=== PATIENT | male | born 1940 | race Caucasian/White ===

== ENCOUNTER 2018-01-12 20:30 | Inpatient (IN) | payer MEDICARE, BC ==
[~2018-01-12] VITALS: Ht 175.3 cm; Wt 75.7 kg
[2018-01-12 20:30] VITALS: BP 174/142
--- NOTE | 2018-01-12 20:40 | NUR ---
PT [facility]IBA#39 [facility], PT WAS SENT HERE FOR LOW O2 SATS, PT RECEIVED 5MG ALBUTEROL DIRECTOR CHEMISTRY BY EMS. PT SATING 90% RA. PT IS AAOX1. RESP EVEN AND LABORED. S/S OF ACUTE DISTRESS NOTED. SKIN HOT TO TOUCH AND MILDLY DIAPHORETIC. RT BEDSIDE TO PLACE PT ON BIPAP PER MD. MD BEDSIDE EVALUATING PT. PT PLACED IN GOWN AND MONITOR AND POX. PT SAFETY AND COMFORT MEASURES IN PLACE.
--- NOTE | 2018-01-12 20:42 | NUR ---
BIPAP SETTING 15/ RR 18 50%
[2018-01-12] MEDS ORDERED: ALBUTEROL FS 2.5 MG/0.5 ML VIAL.NEB ONE (20:49)
[2018-01-12] MEDS ORDERED: IPRATROPIUM NEB FS 0.5 MG/2.5 ML AMPUL.NEB ONE (20:49)
[2018-01-12] MEDS ORDERED: PIPERACILLIN /TAZOBACTAM 3.375 G in IV D5W 50 ML IV ONE (21:00)
[2018-01-12] MEDS ORDERED: IPRATROPIUM NEB FS 0.5 MG/2.5 ML AMPUL.NEB NEB ONE (21:00)
[2018-01-12] MEDS ORDERED: IV NS 0.9% 1,000 ML BAG IV ONE (21:00)
[2018-01-12] MEDS ORDERED: ALBUTEROL FS 2.5 MG/0.5 ML VIAL.NEB NEB ONE (21:00)
[2018-01-12] MEDS ORDERED: Magnesium 1GM/D5W 100ML PREMIX 100 ML IV SCH (21:00)
[2018-01-12] MEDS ORDERED: DEXAMETHASONE SOD PHOSPHATE 10 MG/ML VIAL IV ONE (21:00)
[2018-01-12] MEDS ORDERED: Magnesium 1GM/D5W 100ML PREMIX 100 ML IV ONE (21:11)
[2018-01-12] MEDS ORDERED: DEXAMETHASONE SOD PHOSPHATE 10 MG/ML VIAL ONE (21:11)
[2018-01-12] MEDS ORDERED: PIPERACILLIN /TAZOBACTAM 3.375 G VIAL IV ONE (21:11)
--- NOTE | 2018-01-12 21:11 | NUR ---
PT REC'D ON 8L BREATHING TX MASK. RESP DISTRESS NOTED. EXPIRATORY WHEEZES AND RHONCHI HEARD ON AUSCULTATION. PT PLACED ON BIPAP PER DR NELSY ERWIN. BIPAP PLUGGED INTO RED OUTLET. AMBU BAG BEDSIDE. ALARMS ARE SET AND AUDIBLE WILL CONTINUE TO MONITOR Addendum: 01/12/18 at 2113 by SEMAJ ORDOÑEZ RT Amended: Links added.
--- NOTE | 2018-01-12 21:13 | NUR ---
LAB BEDSIDE FOR BLOOD DRAW
[2018-01-12 21:24] LABS: BASOPHILS % (AUTO) 0.3 % (0.0-2.0); EOSINOPHILS # (AUTO) 0.1 /CMM (0.0-0.7); EOSINOPHILS % (AUTO) 0.9 % (0.0-6.0); HEMATOCRIT 36 % (39-51); HEMOGLOBIN 12.2 g/dL (13.5-17.5); LYMPHOCYTES # (AUTO) 0.9 /CMM (0.8-4.8); MEAN CORPUSCULAR HEMOGLOBIN 29 PG (26.0-33.0); MEAN CORPUSCULAR HGB CONC 34 g/dl (31.0-36.0); MEAN CORPUSCULAR VOLUME 85 fL (80-96); MONOCYTES # (AUTO) 0.5 /CMM (0.1-1.30); MONOCYTES % (AUTO) 9.3 % (2.0-12.0); NEUTROPHILS # (AUTO) 4.3 /CMM (1.8-8.9); NEUTROPHILS % (AUTO) 73.5 % (43.0-81.0); PLATELET COUNT (AUTO) 188 /CMM (150-450); RDW COEFFICIENT OF VARIATION 12.9 (11.5-15.0); RED BLOOD CELL COUNT(AUTO) 4.19 MIL/uL (4.5-6.0); WHITE BLOOD COUNT (AUTO) 5.8 K/uL (4.3-11.0)
[2018-01-12 21:31] LABS: CARBON DIOXIDE 34 mmol/L (21-32); CHLORIDE 98 mmol/L (98-107); GLUCOSE 153 mg/dL (74-106); POTASSIUM 3.9 mmol/L (3.5-5.1); SODIUM SERUM 136 mmol/L (136-145); UREA NITROGEN, BLOOD 33 mg/dL (7-18)
[2018-01-12 21:36] LABS: INR 0.99 (0.85-1.15)
[2018-01-12 21:39] LABS: TROPONIN I < 0.017 ng/mL (0.00-0.056)
[2018-01-12 21:43] LABS: ALANINE AMINOTRANSFERASE 31 U/L (12-78); ALBUMIN 2.4 g/dL (3.4-5.0); ALKALINE PHOSPHATASE 81 U/L (46-116); ASPARTATE AMINOTRANSFERASE 35 U/L (15-37); B-TYPE NATRIURETIC PEPTIDE 1481 PG/ML (0-125); BILIRUBIN,DIRECT 0.1 mg/dL (0.0-0.2); BILIRUBIN,TOTAL 0.2 mg/dL (0.2-1.0)
[2018-01-12] MEDS ORDERED: clonazePAM 1 MG TABLET GT PRN (22:30)
[2018-01-12] MEDS ORDERED: ALBUTEROL FS 2.5 MG/3 ML VIAL.NEB NEB PRN ×2 (22:30→22:38)
[2018-01-12] MEDS ORDERED: ACETAMINOPHEN 650 MG/SUPP.RECT RC PRN (22:30)
[2018-01-12] MEDS ORDERED: IPRATROPIUM NEB FS 0.5 MG/2.5 ML AMPUL.NEB NEB PRN (22:30)
[2018-01-12] MEDS ORDERED: IV NS 0.9% 1,000 ML BAG IV PRN (23:00)
--- NOTE | 2018-01-12 23:00 | NUR ---
REPORT GIVEN TO TELEPHONE OPERATOR RECEPTIONISTJOSLYN PRYOR FOR JEREMIAS
[2018-01-12 23:05] LABS: APPEARANCE,URINE SL CLOUDY (CLEAR); BILIRUBIN,URINE NEGATIVE (NEGATIVE); BLOOD, URINE TRACE-INTA Ery/uL (NEGATIVE); COLOR,URINE YELLOW (YELLOW); KETONES,URINE NEGATIVE (NEGATIVE); LEUKOCYTE ESTERASE ,URINE NEGATIVE (NEGATIVE); NITRITE, URINE NEGATIVE (NEGATIVE); PROTEIN,URINE 1+ mg/dl (NEGATIVE); UGLUCOSE NEGATIVE (NEGATIVE); UROBILINOGEN,URINE 0.2 EU/dL (0.2)
[2018-01-12 23:11] LABS: BACTERIA,URINE None seen /HPF (None Seen); SQUAMOUS EPITHELIAL CELL,UR Rare /HPF (None Seen); WBC,URINE 0-2 /HPF (0-3)
[2018-01-12 23:27] VITALS: BP 130/109
[2018-01-12] MEDS ORDERED: DILTIAZEM HCL IV 125 MG in IV D5W 100 ML IV PRN (23:30)
[2018-01-12] MEDS ORDERED: DILTIAZEM HCL 50 MG IV IV ONE (23:30)
--- NOTE | 2018-01-12 23:30 | NUR ---
LOCK AND DAM OPERATOR RCD PT W/DX ACUTE HYPOXIC RESP FAILURE; PT IS AWAKE NON VERBAL AT THIS TIME; DOES NOT FOLLOW COMMANDS. ST 160s ON MONITOR. GTUBE CLAMPED. ABD BINDER IN PLACE. LUEVANO CATH IN PLACE WITH ADEQUATE AMOUNT OF DARK YELLOW URINE. PT WITH GENERALIZED RASH ALL THROUGHOUT BODY. REDNESS ON BUTTOCKS. MEPILEX PLACED.
[2018-01-12 23:33] VITALS: BP 138/97
[2018-01-12] MEDS: IV NS 0.9% 1,000 ML IV PRN (23:55)
[2018-01-13] VITALS (53 sets, daily range): BP systolic 105–168; BP diastolic 51–86
[2018-01-13] MEDS ORDERED: LORAZEPAM INJ 2 MG/ML VIAL IV ONE
--- NOTE | 2018-01-13 | NUR ---
WALLPAPER INSPECTORCHILD CAREGIVER PRIVATE HOME AT BEDSIDE; UPDATED ON PT CONDITION; PER FAMILY THE RASH IS DERMATITIS WAS TOLD TO THEM BY THE FORM STRIPPER. FAMILY REQUESTS MITTEN BE PLACED TO RIGHT HAND; PER FAMILY PT IS VERY STRONG WITH THAT HAND AND REMOVES TUBES WITH THAT. RCD ORDER TO PLACE PTS MITTEN. FAMILY EDUCATED ON RESTRAINT USAGE. PER FAMILY PLACE SHEET IN BETWEEN PTS AND BINDER AND STOMACH.
[2018-01-13] MEDS ORDERED: DILTIAZEM HCL 25 MG IV ONE ×2 (00:34)
[2018-01-13] MEDS: FIBERSOURCE HN 1,000 ML BOTTLE GT PRN (04:32)
[2018-01-13] MEDS ORDERED: PIPERACILLIN /TAZOBACTAM 3.375 G VIAL IV ONE (04:33)
[2018-01-13 04:43] LABS: EOSINOPHILS % (AUTO) 0.1 % (0.0-6.0); HEMATOCRIT 35 % (39-51); HEMOGLOBIN 11.7 g/dL (13.5-17.5); LYMPHOCYTES # (AUTO) 0.3 /CMM (0.8-4.8); LYMPHOCYTES % (AUTO) 6.1 % (20.0-44.0); MEAN CORPUSCULAR HEMOGLOBIN 29 PG (26.0-33.0); MEAN CORPUSCULAR HGB CONC 33 g/dl (31.0-36.0); MEAN CORPUSCULAR VOLUME 88 fL (80-96); MONOCYTES # (AUTO) 0.1 /CMM (0.1-1.30); NEUTROPHILS # (AUTO) 3.9 /CMM (1.8-8.9); NEUTROPHILS % (AUTO) 91.8 % (43.0-81.0); PLATELET COUNT (AUTO) 165 /CMM (150-450); RDW COEFFICIENT OF VARIATION 14.2 (11.5-15.0); RED BLOOD CELL COUNT(AUTO) 4.01 MIL/uL (4.5-6.0); WHITE BLOOD COUNT (AUTO) 4.3 K/uL (4.3-11.0)
[2018-01-13] MEDS: PIPERACILLIN /TAZOBACTAM 3.375 G in IV D5W 50 ML IV SCH ×3 (05:00→21:02)
[2018-01-13] MEDS ORDERED: methylPREDNISolone SOD SUCC 40 MG/ML VIAL IV SCH (05:00)
[2018-01-13] MEDS: NORMAL SALINE FLUSH 10 ML SYR IV SCH ×3 (05:00→21:02)
[2018-01-13 05:06] LABS: CALCIUM, SERUM 8.5 mg/dL (8.5-10.1); CARBON DIOXIDE 25 mmol/L (21-32); CHLORIDE 102 mmol/L (98-107); CREATININE 1.2 mg/dL (0.6-1.3); GLUCOSE 221 mg/dL (74-106); MAGNESIUM 2.2 mg/dL (1.8-2.4); PHOSPHORUS 3.6 mg/dL (2.5-4.9); POTASSIUM 4.8 mmol/L (3.5-5.1); SODIUM SERUM 138 mmol/L (136-145); UREA NITROGEN, BLOOD 31 mg/dL (7-18)
[2018-01-13 05:10] LABS: CHOLESTEROL 95 mg/dL (<200); HDL CHOLESTEROL 42 mg/dL (40-60); LDL 44 mg/dL (0-99); TRIGLYCERIDES 39 mg/dL (30-150)
[2018-01-13] MEDS ORDERED: LACT-96 GT (07:43)
[2018-01-13] MEDS ORDERED: NAFT40GE TP (07:43)
[2018-01-13] MEDS ORDERED: VALP250S4 GT (07:43)
[2018-01-13] MEDS ORDERED: METO25TA20 GT (07:43)
[2018-01-13] MEDS ORDERED: ALPR0.5T GT (07:43)
[2018-01-13] MEDS ORDERED: OMEP20CA10 GT (07:43)
[2018-01-13] MEDS ORDERED: ASPI-1169 GT (07:43)
[2018-01-13] MEDS ORDERED: DOCU50LI GT (07:43)
[2018-01-13] MEDS ORDERED: RANI150T12 GT (07:43)
[2018-01-13] MEDS ORDERED: AMIN30LI4 GT (07:43)
[2018-01-13] MEDS ORDERED: FLUO15CR TP (07:43)
[2018-01-13] MEDS ORDERED: CEFT1VIA15 IV (07:43)
[2018-01-13] MEDS ORDERED: MULT-447 GT (07:43)
[2018-01-13] MEDS ORDERED: IPRA3AMP IH ×2 (07:43)
[2018-01-13 07:51] LABS: THYROID STIMULATING HORMONE 1.678 uIU/mL (0.358-3.74)
--- NOTE | 2018-01-13 07:52 | NUR ---
INITIAL APARTMENT LEASING AGENT NOTE RCVD PT WITH EYES CLOSED, UNABLE TO FOLLOW COMMANDS. MITTEN PRESENT ON RIGHT HAND. ST ON TELE. ON BIPAP TOLERATING WELL. PEG PLACEMENT VERIFIED BY AUSCULTATION ASPIRATION. NO RESIDUAL OBTAINED. LUEVANO TO GRAVITY DRAINING CLOUDY, YELLOW URINE. IV SITES C/D/I/PATENT. NO S/O INFILTRATION/PHLEBITIS OBSERVED UPON FLUSHING. WILL CONTINUE TO MONITOR PT FOR SAFETY AND COMFORT. BED IN LOW AND LOCKED POSITION. CALL LIGHT WITHIN REACH.
[2018-01-13] MEDS: PANTOPRAZOLE 40 MG VIAL IV SCH (08:51)
[2018-01-13] MEDS: MULTIVITAMINS,THERAGRAN 1 UDTAB TABLET GT SCH (08:51)
[2018-01-13] MEDS: ASPIRIN 81 MG TAB.CHEW GT SCH (08:51)
--- NOTE | 2018-01-13 08:51 | NUR ---
WOUND CARE CONSULT: PT NOT SEEN YET FOR SKIN ASSESSMENT DUE TO PT BEING TAKEN OF BIPAP AT THIS TIME BY RMay DEFER TO MD FOR RASHES. ALL SKIN PROTECTION MEASURES DISCUSSED WITH NURSING STAFF. CURRENT MALIA SCORE IS 10. WILL SEE PT PT CONDITION PERMITS.
[2018-01-13] MEDS ORDERED: Z GUARD REMEDY 2 OZ OINT TP PRN (09:00)
[2018-01-13] MEDS ORDERED: METOPROLOL TARTRATE 25 MG TABLET GT SCH (09:00)
[2018-01-13] MEDS ORDERED: ALBUTEROL FS 2.5 MG/3 ML VIAL.NEB NEB SCH ×2 (11:00→15:30)
[2018-01-13] MEDS: Z GUARD REMEDY 2 OZ OINT TP SCH (11:37)
--- NOTE | 2018-01-13 11:47 | NUR ---
CONFERENCE PLANNER NOTE DR. CALDERÓN INFORMED THAT PT HAS LOW URINARY OUTPUT ABOUT 100 ML FOR THE PAST 6 HRS. SHE RECOMMENDED TO INCREASE IVF RATE TO 75 ML/HR. ORDER ENTERED AND ACKNOWLEDGED.
[2018-01-13 11:51] LABS: ABG BASE EXCESS 0.5 mmol/L; ABG OXYGEN SATURATION 94.1 % (92.0-98.5); ABG PCO2 44.3 mmHg (35.0-45.0); ABG PH 7.383 (7.350-7.450); AaDO2 231.7 mmHg; COHb 0.3 % (0.5-1.5); MetHb 0.5 % (0.0-1.5); O2Hb 93.3 % (94.0-97.0); SITE, ABG Left Radial; VENT MODE, BG SM 6L
[2018-01-13] MEDS ORDERED: ADENOSINE 6 MG/2 ML VIAL IVP ONE ×2 (12:30)
[2018-01-13] MEDS: ENOXAPARIN SODIUM 40 MG/0.4 ML DISP.SYRIN SQ SCH (12:51)
[2018-01-13] MEDS ORDERED: AMIODARONE 900 MG in IV D5W 482 ML IV PRN (13:00)
[2018-01-13] MEDS ORDERED: AMIODARONE 150 MG in IV D5W 100 ML IV ONE (13:00)
--- NOTE | 2018-01-13 13:26 | NUR ---
PRECISION PRINTING WORKER NOTE WHILE PT WAS RECEIVING ALBUTEROL BREATHING TX, PT DEVELOPED SUSTAINED SVT HR >200. DR. BLACK CONTACTED HE RECOMMENDED ADENOSINE 6/12MG TO BE GIVEN 5 MIN APART. PT DID NOT RESPOND TO ADENOSINE AFTER SECOND DOSE RHYTHM APPEARS AFIB/FLUTTER SUSTAINED AT 170'S. DR. BLACK INFORMED AMIODARONE BOLUS/GTT ORDERED. PT RESPONDED TO AMIO BOLUS. SINUS TACH ON TELE. WILL CONTINUE TO MONITOR. PT'S AT BEDSIDE UPDATED ON PT'S CONDITION. DR. GUEVARA INFORMED ABOUT PT'S REACTION TO BREATHING TX. HE RECOMMENDED TO HALF THE DOSE. ORDER ENTERED.
[2018-01-13] MEDS: IPRATROPIUM NEB FS 0.5 MG/2.5 ML AMPUL.NEB NEB SCH ×4 (15:02→23:10)
[2018-01-13] MEDS: ALBUTEROL FS 2.5 MG/3 ML VIAL.NEB NEB SCH ×3 (15:30→23:10)
[2018-01-13] MEDS: diphenhydrAMINE HCL 50 MG/ML VIAL IV PRN ×2 (16:16→21:50)
[2018-01-13] MEDS: methylPREDNISolone SOD SUCC 40 MG/ML VIAL IV SCH ×2 (16:19→23:00)
[2018-01-13] MEDS: IV NS 0.9% 1,000 ML IV PRN (16:20)
[2018-01-13] MEDS: SOD FERRIC GLUC 125 MG in IV NS 0.9% 100 ML IV SCH (17:28)
--- NOTE | 2018-01-13 19:04 | NUR ---
UNIVERSITY PROFESSOR NOTE PT REMAINS TACHYPNEIC, DEEP SUCTIONING DONE BY RT WITH RN AT BEDSIDE. PT UNABLE TO FOLLOW COMMANDS, ABLE TO VOCALIZE A WORD WITHOUT CONSISTENCE. OFF BIPAP SINCE 829 TOLERATING SIMPLE MASK WELL. LUEVANO TO GRAVITY. PEG IN PLACE. LEFT HAND #18 AND NICOLE MIDLINE C/D/I/PATENT. NO S/O INFILTRATION/PHLEBITIS OBSERVED UPON FLUSHING. IVF INFUSING. PT'S CARE ENDORSED TO SPORTS COMPLEX ATTENDANT RN FOR CONTINUITY OF CARE. BED IN LOW AND LOCKED POSITION. TUBE FEEDING HELD SINCE RESIDUAL OF 100ML FOUND. WILL ENDORSE TO SPORTS COMPLEX ATTENDANT RN.
--- NOTE | 2018-01-13 20:00 | NUR ---
HEEL TRIMMER Received patient awake alert non verbal not following commands.Dx:Respiratory failure.Hx: CVA with left sided weakness.Right hand mittens on for safety.Tachypneic RR 33 with O2 simple mask at 6L/min well tolerated saturation 99%.No acute distress noted.RT at bedside suctioning patient. Tele SR with occasional pvc's.Amiodarone gtt decreased to 0.5 mg/min per protocol infusing well to jack midline.Site intact.PEG feeding on hold D/T high residual.Continue to monitor.FC to gravity.Turned and repositioned.
--- NOTE | 2018-01-13 22:00 | NUR ---
NUTRITIONAL YEAST SUPERVISOR NOTES Rechecked for GT residual 0ml.GT feeding restarted at 40 ml/hr.Aspiration precaution observed with HOB elevated.
--- NOTE | 2018-01-13 22:30 | NUR ---
Patient still tachypneic RR 31 desat to 80%.BIPAP applied by RT.Rate 18,15/5,FIO2 60%. Continue to monitor.
[2018-01-14] VITALS (33 sets, daily range): BP systolic 104–157; BP diastolic 46–93
[2018-01-14] MEDS: IPRATROPIUM NEB FS 0.5 MG/2.5 ML AMPUL.NEB NEB SCH ×6 (03:12→22:58)
[2018-01-14] MEDS: ALBUTEROL FS 2.5 MG/3 ML VIAL.NEB NEB SCH ×6 (03:12→22:58)
[2018-01-14] MEDS: diphenhydrAMINE HCL 50 MG/ML VIAL IV PRN ×3 (03:41→20:30)
--- NOTE | 2018-01-14 04:00 | NUR ---
Patient AM care done.Complete linens changed.Turned and repositioned.Noted patient itching rubbing right arm to his chest with rashes.PRN Benadryl administered.Noted relief.
[2018-01-14 04:54] LABS: BASOPHILS % (AUTO) 0.2 % (0.0-2.0); EOSINOPHILS % (AUTO) 0.1 % (0.0-6.0); HEMATOCRIT 29 % (39-51); HEMOGLOBIN 9.8 g/dL (13.5-17.5); LYMPHOCYTES # (AUTO) 0.4 /CMM (0.8-4.8); LYMPHOCYTES % (AUTO) 5.5 % (20.0-44.0); MEAN CORPUSCULAR HEMOGLOBIN 29 PG (26.0-33.0); MEAN CORPUSCULAR HGB CONC 34 g/dl (31.0-36.0); MEAN CORPUSCULAR VOLUME 87 fL (80-96); MONOCYTES # (AUTO) 0.1 /CMM (0.1-1.30); MONOCYTES % (AUTO) 1.5 % (2.0-12.0); NEUTROPHILS # (AUTO) 7.4 /CMM (1.8-8.9); NEUTROPHILS % (AUTO) 92.7 % (43.0-81.0); PLATELET COUNT (AUTO) 156 /CMM (150-450); RDW COEFFICIENT OF VARIATION 12.8 (11.5-15.0); RED BLOOD CELL COUNT(AUTO) 3.34 MIL/uL (4.5-6.0); WHITE BLOOD COUNT (AUTO) 7.9 K/uL (4.3-11.0)
[2018-01-14] MEDS: methylPREDNISolone SOD SUCC 40 MG/ML VIAL IV SCH ×4 (05:01→23:22)
[2018-01-14] MEDS: NORMAL SALINE FLUSH 10 ML SYR IV SCH ×3 (05:01→20:33)
[2018-01-14] MEDS: PIPERACILLIN /TAZOBACTAM 3.375 G in IV D5W 50 ML IV SCH ×4 (05:01→23:21)
[2018-01-14 05:06] LABS: CALCIUM, SERUM 8.4 mg/dL (8.5-10.1); CARBON DIOXIDE 31 mmol/L (21-32); CHLORIDE 104 mmol/L (98-107); GLUCOSE 213 mg/dL (74-106); MAGNESIUM 2.1 mg/dL (1.8-2.4); PHOSPHORUS 2.5 mg/dL (2.5-4.9); POTASSIUM 4.8 mmol/L (3.5-5.1); SODIUM SERUM 140 mmol/L (136-145); UREA NITROGEN, BLOOD 33 mg/dL (7-18)
[2018-01-14 05:31] LABS: CREATINE KINASE, TOTAL 99 U/L (39-308); THYROID STIMULATING HORMONE 0.814 uIU/mL (0.358-3.74)
--- NOTE | 2018-01-14 07:50 | NUR ---
RN NOTES RECEIVED PT IN BED, ON BIPAP SETTINGS PRESCRIBED. R: 18 15/5 WEU472%. NO ACUTE DISTRESS NOTED. ON AMIO DRIP 0.5MG/MIN INFUSING ON NICOLE MIDLINE. IVF NS @75ML/HR INFUSING ON L HAND. SR ON CRYPTOLOGIC SUPERVISOR. GTF FIBERSOURCE @40ML/HR VIA GTUBE. PT AFEBRILE. BILATERAL PEDAL PULSES PALPABLE, BILATERAL HEEL SUPPORT IN PLACE. R HAND MITTEN CHECKED, PER REPORT PT PULLING OUT BIPAP. REPOSITIONED FOR COMFORT, SAFETY MAINTAINED. WILL MONITOR CLOSELY.
[2018-01-14] MEDS: FIBERSOURCE HN 1,000 ML BOTTLE GT PRN (08:17)
[2018-01-14] MEDS: IV NS 0.9% 1,000 ML IV PRN ×2 (08:17→22:08)
[2018-01-14] MEDS: ENOXAPARIN SODIUM 40 MG/0.4 ML DISP.SYRIN SQ SCH (08:26)
[2018-01-14] MEDS: MULTIVITAMINS,THERAGRAN 1 UDTAB TABLET GT SCH (08:26)
[2018-01-14] MEDS: PANTOPRAZOLE 40 MG VIAL IV SCH (08:26)
[2018-01-14] MEDS: ASPIRIN 81 MG TAB.CHEW GT SCH (08:26)
[2018-01-14] MEDS: Z GUARD REMEDY 2 OZ OINT TP SCH (08:27)
--- NOTE | 2018-01-14 09:03 | NUR ---
RN NOTES PT NOTED ITCHING, BENADRL 25MG IV GIVEN
--- NOTE | 2018-01-14 09:25 | NUR ---
RN NOTES PT WAS PLACED ON O2@5LPM VIA NC PER DR GUEVARA ORDER
--- NOTE | 2018-01-14 09:37 | NUR ---
RN NOTES PT WAS SEEN AND EVALUATED BY DR GUEVARA AT BEDSIDE. NGUYEN RT AT BEDSIDE. PTY SATING 90-92% ON 5LPM [address] GUEVARA ORDER CONTNUOUS BREATHING TX OF ALBUTEROL 10MG. ORDERS NOTED AND CARRIED OUT. PT NOTED REMOVING O2 NC, REINFORCED
[2018-01-14] MEDS ORDERED: ALBUTEROL FS 2.5 MG/0.5 ML VIAL.NEB NEB ONE (10:00)
[2018-01-14] MEDS: ALPRAZOLAM 0.5 MG TABLET GT PRN ×2 (13:28→20:29)
[2018-01-14] MEDS ORDERED: SOD FERRIC GLUC 125 MG in IV NS 0.9% 100 ML IV SCH (14:00)
[2018-01-14] MEDS: SOD FERRIC GLUC 125 MG in IV NS 0.9% 100 ML IV SCH (16:52)
--- NOTE | 2018-01-14 18:23 | NUR ---
RN NOTES PT RESTING IN BED COMFORTABLY. APPEARS CALM AND RELAXED. ON O2@5LPM VIA NC, SUCTIONED VIA ORAL AND NASAL PRN, NOTED IMPROVEMENT WITH O2 SAT. CURRENTLY SATURATING 96% AT THIS TIME. ORAL CARE PROVIDED, ALTHOUGH PT NOTED RESISTANT TO OPEN HIS MOUTH, PER AND CAREGIVER, PT USUALLY BEHAVIOR. ALL DUE MEDS GIVEN. KEPT CLEAN DRY AND COMFORTABLE. VS STABLE, SR ON GEOTHERMAL TECHNICIAN HR 91BPM AT THIS TIME. AFEBRILE. MONITORED ACCORDINGLY
--- NOTE | 2018-01-14 19:30 | NUR ---
MEDICAL AUDITOR: RECEIVED PT WT EYES CLOSED, RESPONSIVE TO LIGHT PAIN STIMULI. UNABLE TO FOLLOW COMMANDS. ON 5L 02 VIA NC WT 02 SAT 92% AND ABOVE. NO ACUTE DISTRESS, NO EVIDENCE OF DISCOMFORT. AFEBRILE. SR ON SAP ADMINISTRATOR. NICOLE MIDLINE INFUSING NS AT 75ML/HR. NO S/S OF INFILTRATION. F/C DRAINING YELLOW URINE TO GRAVITY. GT PLACEMENT VERIFIED VIA AUSCULTATION AND RUNNING FIBERSOURCE AT 40ML/HR WT 5CC RESIDUAL. RIGHT HAND MITTEN IN PLACE FOR EPISODES OF TRYING TO PULL TUBINGS. CIRCULATION AND SKIN WNL. OCCASIONAL ITCHING NOTED. WILL ADMINISTER BENADRYL NEEDED. HOB AT 45 DEGREES. SAFETY/ASPIRATION PRECAUTION NOTED. WILL CONTINUE TO MONITOR.
--- NOTE | 2018-01-14 20:50 | NUR ---
MAIL PROCESSING CLERK: ORAL AND NASOPHARYNGEAL SUCTIONING RENDERED AND TOLERATED FAIRLY. NOTED WT MODERATE AMT. OF PINK-TINGED THICK SECRETIONS. 02 SAT 92% AND ABOVE. HOB AT 45 DEGREES AT ALL TIMES.
--- NOTE | 2018-01-14 21:30 | NUR ---
SPANISH TRANSLATOR: REASSESSED AFTER GIVEN XANAX AND BENADRYL WT GOOD EFFECT. NO ANXIETY/RESTLESSNESS WT ITCHING NOTED AT THIS TIME. EYES CLOSED WT NO LABORED BREATHING. NO EVIDENCE OF DISCOMFORT. WILL CONTINUE TO MONITOR.
[2018-01-15] VITALS (20 sets, daily range): BP systolic 105–157; BP diastolic 57–80
[2018-01-15] MEDS: ALPRAZOLAM 0.5 MG TABLET GT PRN ×3 (02:42→20:32)
[2018-01-15] MEDS: diphenhydrAMINE HCL 50 MG/ML VIAL IV PRN ×2 (02:42→12:37)
[2018-01-15] MEDS: IPRATROPIUM NEB FS 0.5 MG/2.5 ML AMPUL.NEB NEB SCH ×7 (03:40→23:31)
[2018-01-15] MEDS: ALBUTEROL FS 2.5 MG/3 ML VIAL.NEB NEB SCH ×8 (03:40→23:31)
--- NOTE | 2018-01-15 03:45 | NUR ---
DRYING UNIT FELTING MACHINE OPERATOR: REASSESSED AFTER GIVEN XANAX AND BENADRYL WT GOOD EFFECT. PT IS CALM WT EYES CLOSED, EASILY AROUSED WT TACTILE STIMULI. ASKED IF OK AT RESPONDS "YES" AT TIMES.
[2018-01-15 04:21] LABS: HEMATOCRIT 30 % (39-51); HEMOGLOBIN 9.7 g/dL (13.5-17.5); LYMPHOCYTES # (AUTO) 0.4 /CMM (0.8-4.8); LYMPHOCYTES % (AUTO) 4.8 % (20.0-44.0); MEAN CORPUSCULAR HEMOGLOBIN 29 PG (26.0-33.0); MEAN CORPUSCULAR HGB CONC 33 g/dl (31.0-36.0); MEAN CORPUSCULAR VOLUME 88 fL (80-96); MONOCYTES # (AUTO) 0.2 /CMM (0.1-1.30); MONOCYTES % (AUTO) 2.8 % (2.0-12.0); NEUTROPHILS # (AUTO) 8.1 /CMM (1.8-8.9); NEUTROPHILS % (AUTO) 92.4 % (43.0-81.0); PLATELET COUNT (AUTO) 165 /CMM (150-450); RDW COEFFICIENT OF VARIATION 14.3 (11.5-15.0); RED BLOOD CELL COUNT(AUTO) 3.39 MIL/uL (4.5-6.0); WHITE BLOOD COUNT (AUTO) 8.8 K/uL (4.3-11.0)
[2018-01-15 05:02] LABS: ALANINE AMINOTRANSFERASE 30 U/L (12-78); ALBUMIN 1.8 g/dL (3.4-5.0); ALKALINE PHOSPHATASE 59 U/L (46-116); ASPARTATE AMINOTRANSFERASE 25 U/L (15-37); BILIRUBIN,TOTAL 0.1 mg/dL (0.2-1.0); CALCIUM, SERUM 8.6 mg/dL (8.5-10.1); CARBON DIOXIDE 31 mmol/L (21-32); CHLORIDE 105 mmol/L (98-107); GLUCOSE 193 mg/dL (74-106); MAGNESIUM 2.1 mg/dL (1.8-2.4); PHOSPHORUS 2.2 mg/dL (2.5-4.9); POTASSIUM 4.5 mmol/L (3.5-5.1); SODIUM SERUM 142 mmol/L (136-145); TOTAL PROTEIN, SERUM 5.6 g/dL (6.4-8.2); UREA NITROGEN, BLOOD 29 mg/dL (7-18)
[2018-01-15] MEDS: PIPERACILLIN /TAZOBACTAM 3.375 G in IV D5W 50 ML IV SCH ×3 (05:20→17:16)
[2018-01-15] MEDS: methylPREDNISolone SOD SUCC 40 MG/ML VIAL IV SCH ×3 (05:21→17:16)
[2018-01-15] MEDS: NORMAL SALINE FLUSH 10 ML SYR IV SCH ×3 (05:21→21:22)
--- NOTE | 2018-01-15 06:45 | NUR ---
CORONARY CARE UNIT NURSE: STILL ON 5L 02 VIA NC WT NO ACUTE DISTRESS. GT FEEDING TOLERATING WELL. HOB AT 45 DEGREES. SAFETY AND ASPIRATION PRECAUTION NOTED AT ALL TIMES.
--- NOTE | 2018-01-15 07:47 | NUR ---
RN NOTES RECEIVED PT IN BED, AWAKE, RESPONDS TO VERBAL AND TACTILE STIMULI. ON O2@5LPM VIA NC. NO ACUTE DISTRESS NOTED. PT NOTED SEVERAL ATTEMPTS OF REMOVING O2 NASAL CANNULA, CONSTANT REMINDER PROVIDED. IVF HELD PER MD ORDER. ONGOING GTF FIBERSOURCE@40ML/HR, NO RESIDUAL NOTED. NO BM OVERNIGHT. SR ON ENERGY AUDITOR HR 76 BPM. PT AFEBRILE. BILATERAL PEDAL PULSES PALPABLE, BILATERAL HEEL SUPPORT IN PLACE. R HAND MITTEN CHECKED FOR CIRCULATION. PT NOTED ITCHING, BENADRYL PRN GIVEN FROM PREVIOUS SHIFT. REPOSITIONED FOR COMFORT, SAFETY MAINTAINED. WILL MONITOR CLOSELY.
[2018-01-15] MEDS: ASPIRIN 81 MG TAB.CHEW GT SCH (09:00)
[2018-01-15] MEDS: Z GUARD REMEDY 2 OZ OINT TP SCH (09:00)
[2018-01-15] MEDS: MULTIVITAMINS,THERAGRAN 1 UDTAB TABLET GT SCH (09:00)
[2018-01-15] MEDS: ENOXAPARIN SODIUM 40 MG/0.4 ML DISP.SYRIN SQ SCH (09:00)
[2018-01-15] MEDS: FIBERSOURCE HN 1,000 ML BOTTLE GT PRN (09:29)
[2018-01-15] MEDS ORDERED: NEUTRA PHOS 1 POWD.PACKET NG ONE (12:30)
[2018-01-15] MEDS: SOD FERRIC GLUC 125 MG in IV NS 0.9% 100 ML IV SCH (13:00)
--- NOTE | 2018-01-15 15:45 | NUR ---
RN NOTES. PT SUCTIONED POST BREATHING TX. GOOD ORAL CARE PROVIDED. SR ON CHAIN TENDER. HR 89
--- NOTE | 2018-01-15 18:52 | NUR ---
RN NOTES PT TRANSFERRED TO [facility] ROOM 116-2 TRANSPORTED VIA BED. REPORT GIVEN TO BILLY RN FOR CONTINUITY OF CARE. ALL DUE MEDS GIVEN, NEEDS ATTENDED. ORAL CARE PROVIDED. PT SUCTIONED NASAL PRN. CURRENTLY ON O2 @5LPM VIA NC. VS STABLE, BED BATH GIVEN. NO NOTED BM. TOLERATING GTF FIBERSOURCE @40ML/HR. PT RELAXED AT THIS TIME. RESTRAINTS IN PLACE.
--- NOTE | 2018-01-15 19:04 | NUR ---
ICU/RN: RECEIVED PT FROM ICU. PT ON NASAL CANULA, NO ACUTE DISTRESS NOTED AT THIS TIME. PT ALERT, AWAKE, NONVERBAL. SINUS RHYTHM/SINUS TACH ON TELE. LUEVANO CATH IN PLACE, URINE OUTPUT NOTED. TUBE FEEDING INFUSING ORDERED, TOLERATING WELL. MIDLINE/PIV PATENT AND INTACT, NO S/S OF INFECTION OR INFILTRATION NOTED. ALL NEEDS ATTENDED TO, SAFETY MEASURES TAKEN, BED IN LOW POSITION, SIDE RAILS UP, BED BATH GIVEN, TURNED AND REPOSITIONED. CALL LIGHT WITHIN REACH. WILL ENDORSE REPORT TO NIGHT NURSE FOR CONTINUATION OF CARE.
--- NOTE | 2018-01-15 20:15 | NUR ---
RN NOTES PATIENT IN BED RESTING COMFORTABLY WITH FAMILY AT BEDSIDE. NO DISTRESS NOTED. BREATHING EVEN AND UNLABORED.02 SAT 92-93% AT 6 LPM VIA NASAL CANNULA. OBTUNDED, NON VERBAL. NO EYE TRACKING. VITAL SIGNS WNL. KEPT CLEAN AND DRY. WILL CONTINUE TO MONITOR.
[2018-01-16] VITALS (7 sets, daily range): BP systolic 114–158; BP diastolic 63–86
[2018-01-16] MEDS: PIPERACILLIN /TAZOBACTAM 3.375 G in IV D5W 50 ML IV SCH ×5 (00:05→23:01)
[2018-01-16] MEDS: methylPREDNISolone SOD SUCC 40 MG/ML VIAL IV SCH ×5 (00:11→22:42)
[2018-01-16] MEDS: IPRATROPIUM NEB FS 0.5 MG/2.5 ML AMPUL.NEB NEB SCH ×6 (03:25→23:02)
[2018-01-16] MEDS: ALBUTEROL FS 2.5 MG/3 ML VIAL.NEB NEB SCH ×6 (03:25→23:01)
[2018-01-16] MEDS: ALPRAZOLAM 0.5 MG TABLET GT PRN ×3 (03:45→18:30)
[2018-01-16] MEDS: NORMAL SALINE FLUSH 10 ML SYR IV SCH ×3 (05:48→21:19)
--- NOTE | 2018-01-16 06:17 | NUR ---
RN CLOSING NOTES PATIENT RESTING COMFORTABLY IN BED WITH NO DISTRESS NOTED. OBTUNDED, NON VERBAL, NO EYE TRACKING. NO PHYSICAL MANIFESTATION OF PAIN OR DISCOMFORT. NO SIGNIFICANT CHANGE OF CONDITION. VITAL SIGNS WNL. WILL ENDORSE TO AM SHIFT FOR CONTINUITY OF CARE.
--- NOTE | 2018-01-16 07:20 | NUR ---
RN NOTES RECEIVED PT FROM TUFTER HAND, ON 6L NC SATING WELL NO SOB OR DISTRESS NOTED. OPENS EYES TO NAME AND TOUCH, CONFUSED. SR ON THE TELE STEPHAN HR 93. LUEVANO DRAINING TO GRAVITY, YELLOW IN COLOR. GTF AT 40ML/HR. NICOLE MIDLINE INTACT NO IVF. BILATERAL SOFT WRIST RESTRAINTS ON FOR SAFETY. BED LOCKED AND IN LOWEST POSITION, CALL LIGHT WITHIN REACH, SIDE RAILS UPX3, WILL CONT TO STEPHAN.
[2018-01-16 07:36] LABS: CALCIUM, SERUM 8.9 mg/dL (8.5-10.1); CARBON DIOXIDE 36 mmol/L (21-32); CHLORIDE 105 mmol/L (98-107); CREATININE 1.1 mg/dL (0.6-1.3); GLUCOSE 282 mg/dL (74-106); MAGNESIUM 2.1 mg/dL (1.8-2.4); PHOSPHORUS 2.5 mg/dL (2.5-4.9); SODIUM SERUM 143 mmol/L (136-145); UREA NITROGEN, BLOOD 35 mg/dL (7-18)
[2018-01-16 07:42] LABS: HEMATOCRIT 31 % (39-51); HEMOGLOBIN 10.2 g/dL (13.5-17.5); LYMPHOCYTES % (AUTO) 6.4 % (20.0-44.0); MEAN CORPUSCULAR HEMOGLOBIN 29 PG (26.0-33.0); MEAN CORPUSCULAR HGB CONC 33 g/dl (31.0-36.0); MEAN CORPUSCULAR VOLUME 89 fL (80-96); MONOCYTES % (AUTO) 3.3 % (2.0-12.0); NEUTROPHILS % (AUTO) 90.3 % (43.0-81.0); PLATELET COUNT (AUTO) 177 /CMM (150-450); RED BLOOD CELL COUNT(AUTO) 3.46 MIL/uL (4.5-6.0); WHITE BLOOD COUNT (AUTO) 7.4 K/uL (4.3-11.0)
[2018-01-16 07:43] LABS: LYMPHOCYTES # (AUTO) 0.5 /CMM (0.8-4.8); MONOCYTES # (AUTO) 0.2 /CMM (0.1-1.30); NEUTROPHILS # (AUTO) 6.6 /CMM (1.8-8.9)
[2018-01-16] MEDS: MULTIVITAMINS,THERAGRAN 1 UDTAB TABLET GT SCH (08:27)
[2018-01-16] MEDS: ASPIRIN 81 MG TAB.CHEW GT SCH (08:27)
[2018-01-16] MEDS: ENOXAPARIN SODIUM 40 MG/0.4 ML DISP.SYRIN SQ SCH (08:28)
[2018-01-16] MEDS: Z GUARD REMEDY 2 OZ OINT TP SCH (08:29)
--- NOTE | 2018-01-16 08:47 | NUR ---
WOUND CARE CONSULT: PT PRESENTS WITH FECAL INCONTINENCE, RESOLVING RASH TO BACK AND SCROTAL EDEMA. PT IS IMMOBILE WITH CURRENT MALIA SCORE OF 12. CAREGIVER AT BEDSIDE. PT ON FIRST STEP MATTRESS. ALL SKIN PROTECTION MEASURES IN PLACE AND DISCUSSED WITH NURSING STAFF. WILL SEE PRN. PEREZ IN AGREEMENT WITH PLAN OF CARE. Addendum: 01/16/18 at 0848 by KAYLAH ROJAS WNDNU Amended: Links added.
[2018-01-16] MEDS ORDERED: IV NS 0.9% 1,000 ML IV PRN (10:00)
[2018-01-16] MEDS: SOD FERRIC GLUC 125 MG in IV NS 0.9% 100 ML IV SCH (14:09)
[2018-01-16] MEDS: ACETAMINOPHEN 325 MG TABLET MC PRN (14:11)
[2018-01-16] MEDS: DOCUSATE SODIUM LIQ 100 MG/10 ML UDC GT SCH (16:30)
--- NOTE | 2018-01-16 16:40 | NUR ---
MANUFACTURING TECHNOLOGY PROFESSOR NOTE: RECEIVED REPORT FROM [facility] AR[facility]AG[facility] NURSE FOR CONTINUITY OF CARE. ON VARNISHER, SR HR= 90. BED ALARM AND LOCKED AT ALL TIMES. CALL LIGHT WITHIN REACH. CAREGIVER PRESENT AT THE BEDSIDE.
[2018-01-16] MEDS: METOPROLOL TARTRATE 25 MG TABLET GT SCH (17:27)
--- NOTE | 2018-01-16 20:00 | NUR ---
MORTISING MACHINE OPERATOR NOTE: PATIENT IS IN BED, ASLEEP QUIETLY AND COMFORTABLY W/ HOB ELEVATED. ON TEST CASE DEVELOPER, SR HR= 91. BED ALARM AND LOCKED AT ALL TIMES. CALL LIGHT WITHIN REACH. CAREGIVER PRESENT AT THE BEDSIDE. REPORT GIVEN TO PM SHIFT NURSE FOR CONTINUITY OF CARE.
[2018-01-16] MEDS: FLUOCINONIDE 0.05% CREAM 60 GM TUBE TP SCH (21:19)
[2018-01-16] MEDS: VALPROIC ACID 250 MG/5 ML UDC GT SCH (21:19)
[2018-01-17] VITALS (7 sets, daily range): BP systolic 98–171; BP diastolic 64–92
[2018-01-17] MEDS: IPRATROPIUM NEB FS 0.5 MG/2.5 ML AMPUL.NEB NEB SCH ×6 (03:12→23:03)
[2018-01-17] MEDS: ALBUTEROL FS 2.5 MG/3 ML VIAL.NEB NEB SCH ×6 (03:12→23:03)
[2018-01-17] MEDS: VALPROIC ACID 250 MG/5 ML UDC GT SCH ×3 (05:20→20:53)
[2018-01-17] MEDS: ALPRAZOLAM 0.5 MG TABLET GT PRN ×3 (05:20→17:51)
[2018-01-17] MEDS: ACETAMINOPHEN 325 MG TABLET MC PRN (05:21)
[2018-01-17] MEDS: PIPERACILLIN /TAZOBACTAM 3.375 G in IV D5W 50 ML IV SCH (05:21)
[2018-01-17] MEDS: NORMAL SALINE FLUSH 10 ML SYR IV SCH ×3 (05:21→20:53)
--- NOTE | 2018-01-17 07:05 | NUR ---
BOILERMAKER MECHANIC OPENING NOTES RECEIVED PT FROM NIGHTSHIFT NURSE IN STABLE CONDITION. PT IS A/O X1. NO SOB OR SIGNS OF DISTRESS NOTED. HE IS ON 6 L VIA NC AND SATING WELL. PT IS CURRENTLY SR ON THE TELE MONITOR WITH A HR OF 88. LUEVANO CATHETER NOTED TO BE DRAINING ROMARIO COLORED URINE. GTUBE NOTED TO BE PATENT AND INTACT. PLACEMENT VERIFIED VIA AUSCULTATION. PT IS CURRENTLY RECEIVING FIBERSOURCE @ 40ML/HR. PT TOLERATING FEEDING WELL AT THIS TIME. RIGHT UPPER ARM MIDLINE NOTED TO BE PATENT AND INTACT. PERIPHERAL. IV TO THE PT'S LEFTY HAND ALSO NOTED TO BE PATENT AND INTACT. NO REDNESS OR SIGNS OF INFILTRATION NOTED TO BOTH. RESTRAINTS NOTED PATIENT IS NOTED TO BE PULLING AT INVASIVE LINES AND GTUBE. BED IN LOW LOCKED POSITION, SIDE RAILS UP X3, CALL LIGHT WITHIN REACH, BED ALARM ON, PT'S ROAD MECHANIC AT BEDSIDE. WILL CONTINUE TO MONITOR.
[2018-01-17 07:14] LABS: HEMATOCRIT 30 % (39-51); HEMOGLOBIN 9.8 g/dL (13.5-17.5); LYMPHOCYTES # (AUTO) 0.6 /CMM (0.8-4.8); LYMPHOCYTES % (AUTO) 8.2 % (20.0-44.0); MEAN CORPUSCULAR HEMOGLOBIN 29 PG (26.0-33.0); MEAN CORPUSCULAR HGB CONC 33 g/dl (31.0-36.0); MEAN CORPUSCULAR VOLUME 88 fL (80-96); MONOCYTES # (AUTO) 0.4 /CMM (0.1-1.30); NEUTROPHILS # (AUTO) 6.2 /CMM (1.8-8.9); NEUTROPHILS % (AUTO) 86.8 % (43.0-81.0); PLATELET COUNT (AUTO) 198 /CMM (150-450); RDW COEFFICIENT OF VARIATION 14.1 (11.5-15.0); RED BLOOD CELL COUNT(AUTO) 3.37 MIL/uL (4.5-6.0); WHITE BLOOD COUNT (AUTO) 7.1 K/uL (4.3-11.0)
[2018-01-17 07:19] LABS: ALANINE AMINOTRANSFERASE 72 U/L (12-78); ALBUMIN 1.8 g/dL (3.4-5.0); ALKALINE PHOSPHATASE 58 U/L (46-116); ASPARTATE AMINOTRANSFERASE 42 U/L (15-37); BILIRUBIN,TOTAL 0.2 mg/dL (0.2-1.0); CALCIUM, SERUM 8.6 mg/dL (8.5-10.1); CARBON DIOXIDE 33 mmol/L (21-32); CHLORIDE 106 mmol/L (98-107); CREATININE 1.1 mg/dL (0.6-1.3); GLUCOSE 240 mg/dL (74-106); MAGNESIUM 1.9 mg/dL (1.8-2.4); PHOSPHORUS 2.4 mg/dL (2.5-4.9); POTASSIUM 4.1 mmol/L (3.5-5.1); SODIUM SERUM 143 mmol/L (136-145); TOTAL PROTEIN, SERUM 5.1 g/dL (6.4-8.2); UREA NITROGEN, BLOOD 35 mg/dL (7-18)
[2018-01-17 07:26] LABS: TROPONIN I < 0.017 ng/mL (0.00-0.056)
[2018-01-17] MEDS ORDERED: NEUTRA PHOS 1 POWD.PACKET NG ONE (09:00)
[2018-01-17] MEDS ORDERED: methylPREDNISolone SOD SUCC 40 MG/ML VIAL IV SCH (09:00)
[2018-01-17] MEDS ORDERED: ASPIRIN 81 MG TAB.CHEW GT SCH (09:00)
[2018-01-17] MEDS: DOCUSATE SODIUM LIQ 100 MG/10 ML UDC GT SCH ×2 (09:00→16:07)
[2018-01-17] MEDS: ENOXAPARIN SODIUM 40 MG/0.4 ML DISP.SYRIN SQ SCH (09:19)
[2018-01-17] MEDS: Z GUARD REMEDY 2 OZ OINT TP SCH (09:21)
[2018-01-17] MEDS: ASPIRIN 81 MG TAB.CHEW GT SCH (09:22)
[2018-01-17] MEDS: METOPROLOL TARTRATE 25 MG TABLET GT SCH ×2 (09:22→16:40)
[2018-01-17] MEDS: MULTIVITAMINS,THERAGRAN 1 UDTAB TABLET GT SCH (09:23)
[2018-01-17] MEDS: FLUOCINONIDE 0.05% CREAM 60 GM TUBE TP SCH ×2 (10:29→20:53)
[2018-01-17] MEDS: LEVOFLOXACIN 500 MG /D5W 100ML 500 MG in PREMIX 1 EA IV SCH (13:12)
[2018-01-17] MEDS: SOD FERRIC GLUC 125 MG in IV NS 0.9% 100 ML IV SCH (16:32)
[2018-01-17] MEDS: FIBERSOURCE HN 1,000 ML BOTTLE GT PRN (16:39)
[2018-01-17] MEDS: AMLODIPINE BESYLATE 5 MG TABLET PO SCH (16:39)
--- NOTE | 2018-01-17 17:35 | NUR ---
MS RN NOTES PT'S CAREGIVER EXPRESSED HER CONCERNS IN REGARDS TO THE PT'S SCROTAL EDEMA. DR SKINNER MADE AWARE AND STATED "IT WAS DUE TO THE FLUIDS TH PT WAS RECEIVING, IT WILL GO DOWN HE GETS BETTER". WILL CONTINUE TO MONITOR
--- NOTE | 2018-01-17 18:31 | NUR ---
MS RN CLOSING NOTES PT REMAINS IN STABLE CONDITION. ALL NEEDS WERE MET DURING SHIFT AND ORDERS CARRIED OUT ACCORDINGLY. ALL DUE MEDS GIVEN. PT WAS REPOSITIONED AND TURNED PER HOSPITAL PROTOCOL. GTUBE REMAINS PATENT AND INTACT. PT CONTINUE TO TOLERATE FEEDING WELL. NO RESIDUALS ASPIRATED AT THIS TIME. RIGHT UPPER ARM MIDLINE REMAINS PATENT AND INTACT. WOUND AND SKIN CARE RENDERED ORDERED. SAFETY MEASURES MEASURES REMAIN IN PLACE. WILL ENDORSE TO NIGHTSHIFT NURSE FOR JEREMIAS
[2018-01-17 19:15] LABS: OCCULT BLOOD STOOL POSITIVE (NEGATIVE)
--- NOTE | 2018-01-17 20:15 | NUR ---
MS RN NOTES: RECEIVED PT ON 6LPM VIA MASK. PT ALSO HAS LUEVANO CATH AND IS ATTACHED TO DRAINAGE BAG WITH YELLOW URINE DRAINING. PT ON BILATERAL SOFT WRIST RESTRAINTS. PT HAS G TUBE. NO RESIDUALS NOTED AT THIS TIME. PT ON G TUBE FEEDING FIBERSOURCE AT 40ML/HR. PT HAS NICOLE MIDLINE AND IS PATENT AND INTACT. PT CURRENTLY S/L. CALL LIGHT WITHIN PT'S REACH. BED KEPT IN LOW, LOCKED POSITION, AND SIDE RAILS X 2UP. WILL CONTINUE TO MONITOR PT.
[2018-01-18] VITALS: BP 148/62
[2018-01-18] MEDS: ALPRAZOLAM 0.5 MG TABLET GT PRN ×4 (01:51→22:15)
--- NOTE | 2018-01-18 01:58 | NUR ---
MS RN NOTES: PT APPEARS TO BE AGITATED. PT WAS ADMINISTERED XANAX. WILL CONTINUE TO MONITOR.
[2018-01-18] MEDS: ALBUTEROL FS 2.5 MG/3 ML VIAL.NEB NEB SCH ×6 (03:29→23:40)
[2018-01-18] MEDS: IPRATROPIUM NEB FS 0.5 MG/2.5 ML AMPUL.NEB NEB SCH ×6 (03:29→23:40)
[2018-01-18 04:00] VITALS: BP 121/57
[2018-01-18] MEDS: VALPROIC ACID 250 MG/5 ML UDC GT SCH ×3 (04:59→20:57)
[2018-01-18] MEDS: NORMAL SALINE FLUSH 10 ML SYR IV SCH ×3 (04:59→20:58)
[2018-01-18 05:00] VITALS: BP 121/57
[2018-01-18 06:41] LABS: CALCIUM, SERUM 8.9 mg/dL (8.5-10.1); CARBON DIOXIDE 35 mmol/L (21-32); CHLORIDE 102 mmol/L (98-107); GLUCOSE 155 mg/dL (74-106); PHOSPHORUS 3.2 mg/dL (2.5-4.9); POTASSIUM 4.4 mmol/L (3.5-5.1); SODIUM SERUM 141 mmol/L (136-145); UREA NITROGEN, BLOOD 26 mg/dL (7-18)
--- NOTE | 2018-01-18 06:43 | NUR ---
MS RN CLOSING NOTES: ALL NEEDS WERE ATTENDED AND ANTICIPATED FOR. PT ON 6LPM VIA MASK. PT ON PULSE OX MONITOR. PT IS A/O TO SELF. PT ON BILATERAL SOFT WRIST RESTRAINTS. 2HOUR CHECKS WERE PERFORMED. PT ATTEMPTS TO PULL OUT EQUIPMENT AND LINES/TUBINGS. PT HAS LUEVANO CATH AND IS ATTACHED TO DRAINAGE BAG. OUT PUT WAS 1400ML. PT ON G TUBE FIBERSOURCE FEEDING AT 40ML/HR. PT HAS NICOLE MIDLINE AND IS PATENT AND INTACT. CURRENTLY S/L. CALL LIGHT WITHIN PT'S REACH. BED KEPT IN LOW, LOCKED POSITION, AND SIDE RAILS X 2UP. WILL ENDORSE TO AM NURSE FOR JEREMIAS.
[2018-01-18 08:00] VITALS: BP 156/66
[2018-01-18] MEDS: AMLODIPINE BESYLATE 5 MG TABLET PO SCH (08:34)
[2018-01-18] MEDS: MULTIVITAMINS,THERAGRAN 1 UDTAB TABLET GT SCH (08:34)
[2018-01-18] MEDS: ASPIRIN 81 MG TAB.CHEW GT SCH (08:34)
[2018-01-18] MEDS: methylPREDNISolone SOD SUCC 40 MG/ML VIAL IV SCH (08:34)
[2018-01-18] MEDS: Z GUARD REMEDY 2 OZ OINT TP SCH (08:35)
[2018-01-18] MEDS: METOPROLOL TARTRATE 25 MG TABLET GT SCH ×2 (08:35→16:02)
[2018-01-18] MEDS: ENOXAPARIN SODIUM 40 MG/0.4 ML DISP.SYRIN SQ SCH (08:35)
[2018-01-18] MEDS: DOCUSATE SODIUM LIQ 100 MG/10 ML UDC GT SCH ×2 (08:36→16:02)
[2018-01-18] MEDS: FLUOCINONIDE 0.05% CREAM 60 GM TUBE TP SCH ×2 (08:36→20:58)
--- NOTE | 2018-01-18 11:52 | NUR ---
PLACED INTO NASAL CANNULA @ 6LPM O2 FLOW. SPO2 95% SXN MODERATE AMNT CONKLIN WITH BLOOD TINGED SECRETIONS. B/S COURSE CRACKLES/ RHONCHI BILATERAL. Addendum: 01/18/18 at 1154 by SABAS SAMUEL RT Amended: Links added.
[2018-01-18] MEDS: LEVOFLOXACIN 500 MG /D5W 100ML 500 MG in PREMIX 1 EA IV SCH (12:16)
[2018-01-18 17:45] LABS: ABG OXYGEN SATURATION 94.3 % (92.0-98.5); ABG PCO2 43.8 mmHg (35.0-45.0); ABG PH 7.498 (7.350-7.450); ABG PO2 76.5 mmHg (75.0-100.0); AaDO2 194.5 mmHg; COHb 0.3 % (0.5-1.5); MetHb 0.6 % (0.0-1.5); O2Hb 93.5 % (94.0-97.0); SITE, ABG Right Radial; VENT MODE, BG nasal cannula
--- NOTE | 2018-01-18 19:30 | NUR ---
MS RN NOTES RECEIVED ON BED A/O TO SELF,BREATHING NON LABORED,O2 SAT 96%ON 6 LITERS/NC,LUEVANO CATH IN PLACE DRAINING YELLOWISH OUTPUT.ON FIBERSOURCE AT 40ML/HR RATE INFUSING VIA GT.NICOLE MIDLINE INTACT AND PATENT.HOB ELEVATED FOR ASPIRATION PRECAUTION.WILL CONTINUE TO MONITOR STATUS.
[2018-01-18 20:00] VITALS: BP 165/79
[2018-01-18 21:00] VITALS: BP 165/79
--- NOTE | 2018-01-18 21:00 | NUR ---
MS RN NOTES DUE DEPAKENE 250MG GIVEN VIA GT.RIGHT UPPER ARM MIDLINE FLUSHED WITH 3ML SALINE,INTACT AND PATENT.
--- NOTE | 2018-01-18 22:00 | NUR ---
MS RN NOTES ON BILATERAL SOFT WRIST RESTRAINTS TO AVOID PULLING OF TUBINGS.HANDS WITH GOOD CIRCULATION NOTED
[2018-01-18] MEDS: FIBERSOURCE HN 1,000 ML BOTTLE GT PRN (22:08)
--- NOTE | 2018-01-18 22:15 | NUR ---
MS RN NOTES APPEARS ANXIOUS,XANAX 0.5MG/GT GIVEN ORDERED PRN FOR ANXIETY
[2018-01-19] VITALS (7 sets, daily range): BP systolic 130–162; BP diastolic 50–85
--- NOTE | 2018-01-19 01:30 | NUR ---
MS RN NOTES GT FEEDING INCREASED TO 50ML/HR RATE UP TP 65 ML IF TOLERATED.
[2018-01-19] MEDS: ONDANSETRON HCL/PF 4 MG/2 ML VIAL IVP PRN ×2 (02:24→08:44)
--- NOTE | 2018-01-19 02:24 | NUR ---
MS RN NOTES VOMITED ORANGE COLORED VOMITUS,MODERATE IN AMOUNT.MEDICATED WITH ZOFRAN 4MG IV ORDERED.HOB ELEVATED.GT FEEDING PUT BACK TO 40ML/HR RATE.
[2018-01-19] MEDS: IPRATROPIUM NEB FS 0.5 MG/2.5 ML AMPUL.NEB NEB SCH ×6 (03:10→23:43)
[2018-01-19] MEDS: ALBUTEROL FS 2.5 MG/3 ML VIAL.NEB NEB SCH ×6 (03:10→23:43)
[2018-01-19] MEDS: ALPRAZOLAM 0.5 MG TABLET GT PRN ×4 (04:20→22:06)
--- NOTE | 2018-01-19 04:20 | NUR ---
MS RN NOTES GIVEN XANAX 0.5MG /GT FOR ANXIETY
[2018-01-19] MEDS: VALPROIC ACID 250 MG/5 ML UDC GT SCH ×4 (04:36→21:00)
[2018-01-19] MEDS: NORMAL SALINE FLUSH 10 ML SYR IV SCH ×3 (04:37→21:00)
--- NOTE | 2018-01-19 06:20 | NUR ---
MS RN NOTES SLEEP WELL WITH XANAX.GT FEEDING IN PROGRESS,WITH 5ML RESIDUAL VOLUME.CANT TOLERATE TO INCREASE RATE,HAD VOMITING ONE HOUR AFTER INCREASING RATE TO 50ML.DNR/DNI STATUS.HOB ELEVATED.NEGATIVE FOR ASPIRATION.WILL ENDORSE TO DAY NURSE FOR JEREMIAS.
[2018-01-19 06:34] LABS: BASOPHILS % (AUTO) 0.1 % (0.0-2.0); EOSINOPHILS % (AUTO) 0.2 % (0.0-6.0); HEMATOCRIT 35 % (39-51); HEMOGLOBIN 11.6 g/dL (13.5-17.5); LYMPHOCYTES # (AUTO) 0.8 /CMM (0.8-4.8); MEAN CORPUSCULAR HEMOGLOBIN 29 PG (26.0-33.0); MEAN CORPUSCULAR HGB CONC 33 g/dl (31.0-36.0); MEAN CORPUSCULAR VOLUME 89 fL (80-96); MONOCYTES # (AUTO) 0.2 /CMM (0.1-1.30); MONOCYTES % (AUTO) 2.1 % (2.0-12.0); NEUTROPHILS # (AUTO) 9.1 /CMM (1.8-8.9); NEUTROPHILS % (AUTO) 89.6 % (43.0-81.0); PLATELET COUNT (AUTO) 228 /CMM (150-450); RDW COEFFICIENT OF VARIATION 14.3 (11.5-15.0); RED BLOOD CELL COUNT(AUTO) 3.95 MIL/uL (4.5-6.0); WHITE BLOOD COUNT (AUTO) 10.2 K/uL (4.3-11.0)
[2018-01-19 06:47] LABS: CALCIUM, SERUM 8.9 mg/dL (8.5-10.1); CARBON DIOXIDE 34 mmol/L (21-32); CHLORIDE 96 mmol/L (98-107); CREATININE 0.9 mg/dL (0.6-1.3); GLUCOSE 174 mg/dL (74-106); MAGNESIUM 1.6 mg/dL (1.8-2.4); POTASSIUM 3.2 mmol/L (3.5-5.1); SODIUM SERUM 136 mmol/L (136-145); UREA NITROGEN, BLOOD 21 mg/dL (7-18)
--- NOTE | 2018-01-19 07:35 | NUR ---
RN OPENING NOTES RECEIVED PT. PT STABLE AND IN BED RESTING. CAREGIVER AT BEDSIDE. NO S/S OF RESP DISTRESS OR SOB. PT IS ON 4L O2 VIA NC WITH O2 SAT WNL. DOES NOT APPEAR TO BE ANXIOUS OR IN PAIN. FC PATENT AND IN PLACE. IV ACCESS LOCATED ON NICOLE, MID LINE CURRENTLY SL. GT FEEDING OF FIBERSOURCE AT 40 ML/HR WITH INSTRUCTIONS TO SLOWLY TITRATE UP TO MAX OF 65 ML/HR. PER COMMERCIAL RELIEF DRIVER REPORT, PT HAD EPISODE OF N/V LAST NIGHT, FEEDING NOT ADVANCED. SAFETY MEASURES IN PLACE, GINI LIGHT WITHIN REACH. WILL CONTINUE TO MONITOR.
--- NOTE | 2018-01-19 08:30 | NUR ---
RN NOTES PT EXPERIENCED EPISODE OF N/V. EMESIS NOTED TO BE BROWN/DARK BROWN IN COLOR. ZOFRAN PRN GIVEN. WILL CONTINUE TO MONITOR.
--- NOTE | 2018-01-19 08:41 | NUR ---
PATIENT WAS SUCTIONED BUT HAD AN EPISODE OF EMESIS. NT SUCTION CATHETER IMMEDIATELY PULLED OUT AND SUCTIONED PATIENT ORALLY OBTAINING LARGE AMOUNTS OF DARK BROWN EMESIS. PATIENT IS SITTING UP AND WAS PLACED ON OXYGEN 4 LPM VIA NASAL CANNULA. SP02 IS 97% AT THIS TIME. WILL HOLD NT SUCTION AND CONTINUE TO MONITOR. NURSE NOTIFIED.
[2018-01-19] MEDS: DOCUSATE SODIUM LIQ 100 MG/10 ML UDC GT SCH ×2 (08:49→17:33)
[2018-01-19] MEDS: methylPREDNISolone SOD SUCC 40 MG/ML VIAL IV SCH (08:49)
[2018-01-19] MEDS: MULTIVITAMINS,THERAGRAN 1 UDTAB TABLET GT SCH (08:49)
[2018-01-19] MEDS: METOPROLOL TARTRATE 25 MG TABLET GT SCH ×2 (08:50→17:46)
[2018-01-19] MEDS: ASPIRIN 81 MG TAB.CHEW GT SCH (08:50)
[2018-01-19] MEDS: AMLODIPINE BESYLATE 5 MG TABLET PO SCH (08:50)
[2018-01-19] MEDS: ENOXAPARIN SODIUM 40 MG/0.4 ML DISP.SYRIN SQ SCH (09:13)
[2018-01-19] MEDS: Z GUARD REMEDY 2 OZ OINT TP SCH (09:26)
[2018-01-19] MEDS: FLUOCINONIDE 0.05% CREAM 60 GM TUBE TP SCH ×2 (09:27→21:00)
[2018-01-19] MEDS: Magnesium 1GM/D5W 100ML PREMIX 100 ML IV SCH ×2 (10:19→11:35)
[2018-01-19] MEDS: POTASSIUM CHLORIDE 20 MEQ POWDER PACKET NG SCH ×2 (10:19→11:35)
[2018-01-19] MEDS: LEVOFLOXACIN (500MG) 500 MG TABLET GT SCH (13:07)
--- NOTE | 2018-01-19 18:32 | NUR ---
RN CLOSING NOTES PT IN BED RESTING. NO S/S OF RESP DISTRESS OR SOB. PT DOES NOT APPEAR TO BE IN PAIN. CAREGIVER AT BEDSIDE. PT TO BE DC IN AM TOMORROW 01/20/18. ALL PT NEEDS ANTICIPATED AND MET, SAFETY MEASURES IN PLACE, CALL LIGHT WITHIN REACH. WILL ENDORSE TO INTERIOR DESIGN DIRECTOR FOR JEREMIAS.
--- NOTE | 2018-01-19 19:30 | NUR ---
MS RN NOTES RECEIVED RESTING COMFORTABLY ON BED,BREATHING NON LABORED,SKIN WARM AND DRY TO THE TOUCH.BILATERAL SOFT WRIST RESTRAINTS IN USED FOR SAFETY,BOTH HAND WITH GOOD CIRCULATION NOTED.FIBERSOURCE 40ML/HR RATE IN PROGRESS VIA GT.NOTED 10ML RESIDUAL VOLUME.HOB ELEVATED FOR ASPIRATION PRECAUTION.WILL CONTINUE TO MONITOR STATUS.
--- NOTE | 2018-01-19 22:06 | NUR ---
MS RN NOTES APPEARS ANXIOUS,XANAX 0.5MG GIVEN GT ORDERED PRN FOR ANXIETY
--- NOTE | 2018-01-19 23:30 | NUR ---
PEBBLE MILL OPERATOR NOTES APPEARS CONGESTED,O2 SAT 91%,ORAL SUCTION DONE AND WENT UP TO 97% ON 6LITERS/NC
[2018-01-20] VITALS: BP 150/70
[2018-01-20 03:48] VITALS: BP 108/59
[2018-01-20] MEDS: IPRATROPIUM NEB FS 0.5 MG/2.5 ML AMPUL.NEB NEB SCH ×3 (04:23→12:03)
[2018-01-20] MEDS: ALBUTEROL FS 2.5 MG/3 ML VIAL.NEB NEB SCH ×3 (04:23→12:04)
[2018-01-20] MEDS: VALPROIC ACID 250 MG/5 ML UDC GT SCH ×2 (05:04→12:15)
[2018-01-20] MEDS: FIBERSOURCE HN 1,000 ML BOTTLE GT PRN (05:05)
[2018-01-20] MEDS: NORMAL SALINE FLUSH 10 ML SYR IV SCH ×2 (05:05→12:15)
[2018-01-20 05:46] VITALS: BP 144/63
[2018-01-20 06:31] LABS: EOSINOPHILS % (AUTO) 0.2 % (0.0-6.0); HEMATOCRIT 35 % (39-51); HEMOGLOBIN 11.4 g/dL (13.5-17.5); LYMPHOCYTES # (AUTO) 0.8 /CMM (0.8-4.8); MEAN CORPUSCULAR HEMOGLOBIN 29 PG (26.0-33.0); MEAN CORPUSCULAR HGB CONC 33 g/dl (31.0-36.0); MEAN CORPUSCULAR VOLUME 88 fL (80-96); MONOCYTES % (AUTO) 0.4 % (2.0-12.0); NEUTROPHILS # (AUTO) 10.1 /CMM (1.8-8.9); NEUTROPHILS % (AUTO) 92.4 % (43.0-81.0); PLATELET COUNT (AUTO) 239 /CMM (150-450); RDW COEFFICIENT OF VARIATION 14.6 (11.5-15.0); RED BLOOD CELL COUNT(AUTO) 3.91 MIL/uL (4.5-6.0); WHITE BLOOD COUNT (AUTO) 10.9 K/uL (4.3-11.0)
[2018-01-20 06:47] LABS: CARBON DIOXIDE 36 mmol/L (21-32); CHLORIDE 98 mmol/L (98-107); GLUCOSE 144 mg/dL (74-106); MAGNESIUM 2.2 mg/dL (1.8-2.4); POTASSIUM 3.5 mmol/L (3.5-5.1); SODIUM SERUM 139 mmol/L (136-145); UREA NITROGEN, BLOOD 28 mg/dL (7-18)
--- NOTE | 2018-01-20 06:50 | NUR ---
MS RN NOTES NO SIGNIFICANT CHANGE IN STATUS.RESTING COMFORTABLY ON BED,NO SOB,GT FEEDING WITH 5ML RESIDUAL VOLUME THIS MORNING.IN NO ACUTE DISTRESS.WILL ENDORSE TO DAY NURSE FOR JEREMIAS.
--- NOTE | 2018-01-20 07:35 | NUR ---
MS RN OPENING NOTE PATIENT IS ALERT TO SELF. NO FACIAL GRIMACING NOTED FOR PAIN. NO SOB OR DISTRESS NOTED. CALL LIGHT WITHIN REACH. SAFETY MEASURES IMPLEMENTED. ON 6L/MIN OF OXYGEN TOLERATING WELL AT 96%. HAS LUEVANO CATHETER IN PLACE, TO DRAIN QSHIFT. WOUND TREATMENT TO BE DONE IN SACRAL AREA. G-TUBE PRESENT WITH FEEDING RUNNING AT THIS TIME. TOLERATING WELL. RIGHT UPPER MIDLINE INTACT AND PATENT NO REDNESS OR SWELLING NOTED. PENDING LABS THIS MORNING. WILL CONTINUE TO MONITOR THROUGHOUT SHIFT
[2018-01-20 08:00] VITALS: BP 130/93
[2018-01-20] MEDS: METOPROLOL TARTRATE 25 MG TABLET GT SCH (08:16)
[2018-01-20] MEDS: ASPIRIN 81 MG TAB.CHEW GT SCH (08:16)
[2018-01-20] MEDS: AMLODIPINE BESYLATE 5 MG TABLET PO SCH (08:16)
[2018-01-20] MEDS: DOCUSATE SODIUM LIQ 100 MG/10 ML UDC GT SCH (08:16)
[2018-01-20] MEDS: MULTIVITAMINS,THERAGRAN 1 UDTAB TABLET GT SCH (08:16)
[2018-01-20] MEDS: methylPREDNISolone SOD SUCC 40 MG/ML VIAL IV SCH (08:17)
[2018-01-20] MEDS: Z GUARD REMEDY 2 OZ OINT TP SCH (08:17)
[2018-01-20] MEDS: FLUOCINONIDE 0.05% CREAM 60 GM TUBE TP SCH (08:17)
[2018-01-20] MEDS: ENOXAPARIN SODIUM 40 MG/0.4 ML DISP.SYRIN SQ SCH (08:29)
[2018-01-20] MEDS ORDERED: AMLO5TAB2 PO (10:53)
[2018-01-20] MEDS ORDERED: PRED20TA PO (10:53)
[2018-01-20] MEDS ORDERED: PRED50TA PO (10:53)
[2018-01-20] MEDS ORDERED: LEVO500T2 GT (10:53)
[2018-01-20] MEDS: ALPRAZOLAM 0.5 MG TABLET GT PRN (11:19)
[2018-01-20] MEDS ORDERED: POTASSIUM CHLORIDE 20 MEQ POWDER PACKET GT ONE (11:30)
[2018-01-20] MEDS: LEVOFLOXACIN (500MG) 500 MG TABLET GT SCH (12:15)
[2018-01-20 13:00] VITALS: BP 122/85
--- NOTE | 2018-01-20 14:34 | NUR ---
MS INSIDE SALES RECRUITER NOTE PATIENT IS ALERT AND ORIENTED x1. ALL NURSING CARE NEEDS ATTENDED TO NEEDED. ALL DUE MEDICATIONS GIVEN ORDERED. CALL LIGHT WITHIN REACH AT ALL TIMES. SAFETY MEASURES IMPLEMENTED. LUEVANO CATHETER IN PLACE. MIDLINE IN PLACE. G-TUBE INTACT AND PATENT NO REDNESS OR SWELLING NOTED. ALL SKIN CARE DOCUMENTED. ON 3L/MIN TOLERATING WELL. ALL DISCHARGE INSTRUCTIONS GIVEN TO RN AT [facility]. ALL INSTRUCTIONS REPEATED BACK. NO BELONGINGS WITH PATIENT UPON ADMISSION. LEFT VIA AMBULANCE
== END 2018-01-20 14:00 | DRG 189 ==
LOC: ER 20:38 → ICU 22:11 → TELE-TD 01-15 18:34 → TELE1 01-16 16:27 → MEDSG1 01-17 11:22
PROVIDERS: ADMIT Nurse Practitioner Acute Care; ATTEND Nurse Practitioner Acute Care
PROC: 5A09357 Assistance with Respiratory Ventilation, Less than 24 Consecutive Hours, Continuous Positive Airway Pressure (ICD-10-PCS; 2018-01-12)
PROC: 05H533Z Insertion of Infusion Device into Right Subclavian Vein, Percutaneous Approach (ICD-10-PCS; principal; 2018-01-13)
PROC: B546ZZA Ultrasonography of Right Subclavian Vein, Guidance (ICD-10-PCS; 2018-01-13)
PROC: 5A09357 Assistance with Respiratory Ventilation, Less than 24 Consecutive Hours, Continuous Positive Airway Pressure (ICD-10-PCS; 2018-01-13)
DX: J96.01 Acute respiratory failure with hypoxia (principal); E43 Unspecified severe protein-calorie malnutrition; G93.40 Encephalopathy, unspecified; N17.9 Acute kidney failure, unspecified; J18.9 Pneumonia, unspecified organism; D68.59 Other primary thrombophilia; E88.09 Other disorders of plasma-protein metabolism, not elsewhere classified; I48.0 Paroxysmal atrial fibrillation; J45.901 Unspecified asthma with (acute) exacerbation; I69.354 Hemiplegia and hemiparesis following cerebral infarction affecting left non-dominant side; I47.1 Supraventricular tachycardia; R64 Cachexia; R13.10 Dysphagia, unspecified; D63.8 Anemia in other chronic diseases classified elsewhere; E86.0 Dehydration; G40.909 Epilepsy, unspecified, not intractable, without status epilepticus; E03.9 Hypothyroidism, unspecified; E78.5 Hyperlipidemia, unspecified; F41.9 Anxiety disorder, unspecified; I10 Essential (primary) hypertension; F32.9 Major depressive disorder, single episode, unspecified; M62.50 Muscle wasting and atrophy, not elsewhere classified, unspecified site; Z68.24 Body mass index [BMI] 24.0-24.9, adult; Z66 Do not resuscitate; F09 Unspecified mental disorder due to known physiological condition; L98.8 Other specified disorders of the skin and subcutaneous tissue; L30.4 Erythema intertrigo; M24.50 Contracture, unspecified joint; R21 Rash and other nonspecific skin eruption; I69.320 Aphasia following cerebral infarction; Z87.891 Personal history of nicotine dependence
CPT/HCPCS: 31720; 36415; 36569; 36600; 71045-TC; 80048-TC; 80053-TC; 80061-TC; 80076-TC; 81000-TC; 82272-TC; 82306; 82550-TC; 82728-TC; 82746; 82803-TC; 82962-TC; 83540-TC; 83605-TC; 83735-TC; 83880; 84100-TC; 84439-TC; 84443-TC; 84484-TC; 85025-TC; 85730-TC; 87040-TC; 87081-TC; 87086-TC; 87400; 93307-TC; 94760-TC; 94762-TC; 94799-TC; 99082-TC; A4216; A4606; A6253; A6402; A6403; C9113; J0153; J0282; J1100; J1200; J1650; J1956; J2060; J2405; J2543; J2916; J2920; J3475; J3490; J7030; J7040; J7060; Z7610